=== PATIENT | male | born 1985 | race Caucasian/White ===

== ENCOUNTER → 2021-05-16 11:21 | Outpatient (CLI) | payer OTHER, SELFPAY ==
[2021-05-16 13:23] LABS: Volume Semen 1.75 (1.0-5.0)
[2021-05-16 13:36] LABS: Liquefaction Semen NO (YES); PH Semen 8.5 (7-8); Sperm Morphology 27 %ABNORM (0-30)
== END ==
PROVIDERS: PCP Family Medicine; Referring Provider Family Medicine; Visit Provider Family Medicine
DX: N46.9 Male infertility, unspecified (principal)
CPT/HCPCS: 89320